=== PATIENT | male | born 1955 | race Caucasian/White ===

== ENCOUNTER 2017-08-23 16:39 | Inpatient (IN) ==
[2017-08-23] MEDS ORDERED: Ringers Solution, Lactated 500 ML IVC ONE (18:51)
[2017-08-23] MEDS ORDERED: *HR* OxyCODONE/APAP 5/325 TABLET PO PRN (18:52)
[2017-08-23] MEDS ORDERED: *HR* OxyCODONE Immed Rel 5 MG TABLET PO PRN (18:53)
[2017-08-23] MEDS ORDERED: Ondansetron 4 MG/2 ML VIAL IVP PRN (18:54)
[2017-08-23] MEDS ORDERED: Piperacillin/Tazobactam 3.375 GM in 0.9 % Sodium Chloride Mini Bag 100 ML IVPB SCH (19:29)
[2017-08-23] MEDS ORDERED: Ringers Solution, Lactated 1,000 ML ONE (19:42)
[2017-08-23] MEDS: Ringers Solution, Lactated 1,000 ML IVC SCH (19:52)
[2017-08-23] MEDS: Acetaminophen 325 MG TABLET PO PRN (19:53)
[2017-08-24] MEDS: Piperacillin/Tazobactam 3.375 GM in 0.9 % Sodium Chloride Mini Bag 100 ML IVPB SCH ×2 (05:11→12:23)
[2017-08-24] MEDS: Ringers Solution, Lactated 1,000 ML IVC SCH ×2 (05:12→23:17)
--- NOTE | 2017-08-24 07:43 | General Surg History&Physical ---
Date of Encounter: 08/24/17 Time of Encounter: 07:20 History of Present Illness Chief complaint: Right upper quadrant abdominal pain, acute cholecystitis, cholelithiasis HPI: Mr. Armendariz is a 61 year old male transferred from [facility], after presenting there with 3 day history of progressive right upper quadrant abdominal pain and nausea. Patient describes similar complaints in the past but they were much less severe and ultimately resolved spontaneously. Evaluation included laboratories which showed a leukocytosis of 14.2 with 11.1% neutrophils. Hemoglobin was 16.3, hematocrit 46.6. Electrolytes, BUN, creatinine were within normal limits. LFTs were also unremarkable. CT abdomen/ pelvis was notable for distended, thick walled gallbladder with pericholecystic fluid and inflammatory changes. A stone in the cystic duct measuring 15 mm was also evident. The patient was transferred to [facility] for further evaluation and treatment. Past medical history: Patient denies any significant medical history such as cardiac, hypertension, pulmonary, diabetes, or renal disease Allergies: No known drug allergies Medications: No home medications Social history: Patient denies ever smoking; he does not consume alcohol or use illicit drugs Family history: Noncontributory Physical examination: the patient is currently in no acute distress; 1.88 m tall , 112.17 kg, BMI 31.8 he has been afebrile since his transfer to [facility]; pulse 76, respirations 14, blood pressure 142/75. Skin: Warm, no obvious jaundice Lungs: Clear bilaterally, no obvious pain on deep inspiration Cardiac: Regular rate, no appreciable murmurs Abdomen: Soft, minimal tenderness in the right upper quadrant but no discernible organomegaly, intra-abdominal masses, or rebound Bowel sounds were present. Extremities without clubbing, cyanosis, or edema Impression: 61-year-old male transferred to [facility] after presenting to [facility] ED with several day history of progressive right upper quadrant abdominal pain and nausea. The acute symptoms have been controlled, however, the symptoms are likely to recur. Cholecystectomy has been recommended and discussed in detail. The patient is a reasonable candidate for laparoscopic cholecystectomy but understands an open cholecystectomy may become necessary. Risks include hemorrhage, infection, intra-abdominal abscess, bile leak, injury to adjacent ducts, vessels, organs, or bowel. Postcholecystectomy diarrhea is also possible. Other risks such as pneumonia, respiratory failure, and cardiac dysrhythmias were also mentioned. The patient expressed understanding and is willing to proceed with the recommended surgery. This will be completed later today. Past Med Surg Social Fam HX - Past Medical History Medical history: no medical history Psychiatric history: no psych history - Social History Smoking Status: Never smoker Smokeless Tobacco Status: No Alcohol use: none Drug use: none Medications and Allergies No Known Home Drugs 08/23/17 [History] 3 Allergy/AdvReac Type Severity Reaction Status Date / Time No Known Allergies Allergy Verified 08/23/17 12:02 Review of Systems All systems PM: The remainder of the systems were reviewed and are negative General Surgery Exam Initial Vital Signs Temp Pulse Resp BP Pulse Ox 98.3 F 72 14 127/78 97 08/23/17 18:40 08/23/17 18:40 08/23/17 18:40 08/23/17 18:40 08/23/17 18:40 Results - Labs All other labs normal.
[2017-08-24] MEDS: Acetaminophen 325 MG TABLET PO PRN ×2 (08:56→23:18)
--- NOTE | 2017-08-24 13:47 | Anesthesia Evaluation PreOp ---
Date of Encounter: 08/24/17 Time of Encounter: 14:14 - Past History Planned Operation: Lap cholecystectomy, poss cholangiogram Cardiac History: Denies any Significant Hx Pulmonary History: Denies Any Significant HX SEARCH ENGINE OPTIMIZER History: Denies Any Significant HX Other Medical History: Denies Any Significant HX Anesthesia History: No Prior Anesthetic Complications Alcohol Use: none Drug use: none Medications and Allergies No Known Home Drugs 08/23/17 [History] 3 Allergy/AdvReac Type Severity Reaction Status Date / Time No Known Allergies Allergy Verified 08/24/17 08:57 - Meds/Allergy Pre-op Review Medications Reviewed: Yes Allergies Reviewed: Yes Beta Blockers on Current Med List: No Anesthesia Results - Labs Laboratory Tests 08/23/17 08/23/17 08/24/17 12:08 12:08 12:17 WBC 14.2 H Hgb 16.3 Hct 46.6 Plt Count 286 Sodium 135 L Potassium 3.9 Chloride 100 Carbon Dioxide 24 BUN 12 Creatinine 0.97 Est GFR ( Amer) > 60 Est GFR (Non-Af Amer) > 60 BUN/Creatinine Ratio 12 Glucose 107 H POC Glucose 95 H Calculated Osmolality 280 Calcium 9.8 - Imaging EKG: report reviewed, image reviewed (SR) Anesthesia Exam Last Vital Signs Temp 98.1 F 08/24/17 12:14 Pulse 67 08/24/17 12:14 Resp 14 08/24/17 12:14 BP 133/78 08/24/17 12:14 Pulse Ox 98 08/24/17 12:14 Weight: 112 kg - HEENT Pupil (Motor): Pupils equal, EOMI Mallampati: III Teeth: Normal Oral Opening: Greater than 3 - SEARCH ENGINE OPTIMIZER LOC: Oriented SEARCH ENGINE OPTIMIZER Motor: Normal RUE, Normal LUE, Normal RLE, Normal LLE, Normal Face - Cardiac Rhythm: Regular Murmur: None - Pulmonary Breath Sounds: bilateral Clear Respiratory Effort: Symmetrical Anesthesia Assess/Plan ASA Score: 1 Modified Jeremiah Scale for Level of Consciousness: Cooperative, oriented, and tranquil Anesthetic Plan: General Monitoring Plan: Standard Monitors Recovery Plan: PACU
[2017-08-24] MEDS ORDERED: Bupivacaine/EPI 1:200k 0.5%PF 30 ML VIAL ONE ×2 (14:45→16:30)
[2017-08-24] MEDS ORDERED: *HR* Propofol 200 MG/20 ML VIAL IVP ONE (14:46)
[2017-08-24] MEDS ORDERED: *HR* Midazolam HCl 2 MG/2 ML VIAL ONE (14:46)
[2017-08-24] MEDS ORDERED: *HR* Rocuronium Bromide 50 MG/5 ML VIAL ONE (14:48)
[2017-08-24] MEDS ORDERED: *HR* FentaNYL (PF) 100 MCG/2 ML VIAL ONE ×2 (14:49→15:37)
[2017-08-24] MEDS ORDERED: *HR* Succinylcholine 200 MG/10 ML VIAL IVP ONE (14:53)
[2017-08-24] MEDS ORDERED: Lidocaine -MPF 2% 2 ML VIAL ONE (14:53)
[2017-08-24] MEDS ORDERED: Isovue-300 50 ML VIAL IVP ONE (15:09)
[2017-08-24] MEDS ORDERED: Ondansetron 4 MG/2 ML VIAL ONE (15:25)
[2017-08-24] MEDS ORDERED: Dexamethasone 4 MG/ML VIAL IVP ONE (15:47)
[2017-08-24] MEDS ORDERED: *HR* OxyCODONE Immed Rel 5 MG TABLET PO PRN (15:47)
[2017-08-24] MEDS ORDERED: MORPHINE SUL Oral CONC 10 MG/0.5 ML ORAL.SYG SL PRN (15:47)
[2017-08-24] MEDS ORDERED: *HR* Promethazine 25 MG/ML VIAL IVP PRN (15:47)
[2017-08-24] MEDS ORDERED: Ketorolac 30 MG/ML VIAL ONE (15:50)
[2017-08-24] MEDS ORDERED: *HR* Morphine 10 MG/ML VIAL ONE (15:55)
[2017-08-24] MEDS ORDERED: Dexamethasone 4 MG/ML VIAL ONE (16:00)
[2017-08-24] MEDS ORDERED: Neostigmine Methylsulfate 3 MG/3 ML SYRINGE ONE (16:27)
[2017-08-24] MEDS ORDERED: Ringers Solution, Lactated 500 ML IVC ONE (17:15)
--- NOTE | 2017-08-24 17:26 | Operative Note ---
Date of procedure: 08/24/17 Pre-op diagnosis: acute cholecystitis, cholelithiasis Post-op diagnosis: other (Acute acalculous cholecystitis) Procedure: Laparoscopy, open cholecystectomy Complications: None apparent Anesthesia: GETA Local Anesthetics: 0.5% Sensorcaine HCL with Epinephrine 1:200,000 SubQ (cc) ( 40 mL) Surgeon: Agustín Richards Was there an medical technician assistant present: No Estimated blood loss (cc): 200 IV fluids (cc): 1,250 Specimen: gallbladder Condition: stable Disposition: PACU Procedure in Detail: The patient was brought to the operating room where he was placed supine on the operating room table. The patient was appropriately identified as to person and procedure. The accuracy of this information was confirmed by the patient and the procedure team. The patient was intubated and anesthetized under the supervision of Dr. Nichole. The abdomen was prepped and draped in the usual sterile fashion. Several milliliters of 0.5% bupivacaine with 1-200,000 epinephrine was infiltrated into the infra umbilical skin. A small transverse incision was made. Dissection was carried to the fascia. The fascia was grasped, elevated and incised after administering additional bupivacaine with epinephrine into the fascia. An 11 mm Xcel port was established. The rigid laparoscope was placed within the obturator to visualize passage through the layers of the anterior abdominal wall. When the abdominal cavity was accessed, the obturator was replaced by the rigid laparoscope, the abdomen was insufflated with gaseous carbon dioxide. There was no obvious visible injury from establishing the port. Under direct visualization 3 additional ports were placed along the right costal margin. Was infiltrated with the bupivacaine with epinephrine solution. Laparoscopic dissection was initiated however the colon was densely adherent to an acutely inflamed, dilated gallbladder. Extensive adhesions were encountered, primarily adherent to the gallbladder. I abandon the laparoscopic approach were became apparent that visualization was impaired and would not improve with additional dissection. The pneumoperitoneum was evacuated, the laparoscopic instrumentation removed. When the operative team was ready, a subcostal incision was made after infiltrating the skin with bupivacaine with epinephrine. The dissection extended to the anterior rectus sheath which was incised, the right rectus abdominis muscle divided with electrocautery. The posterior rectus sheath was elevated and incised. The abdomen was entered atraumatically. Exposure was facilitated with self-retaining Bookwalter retractor. The gallbladder was tensely distended and quite firm. Aspiration was attempted, yielding approximately 10 mL of a thick dark bile. This was ineffective at decompressing the gallbladder. The gallbladder was exposed using a combined sharp and blunt dissection to mobilize the colon and the other adhesions to the gallbladder. The bladder was exposed, a retrograde dissection was commenced. Using electrocautery, the distal tip of the gallbladder was dissected from the liver bed and then using blunt dissection and was able to separate the gallbladder from the liver bed. I was able to extend the dissection until the cystic duct and cystic arteries were identified and skeletonized. Both structures were clipped and divided. The acutely inflamed gallbladder was removed. On opening the gallbladder on the back table no stones were encountered. The findings were consistent with acute acalculous cholecystitis. The liver bed was inspected for adequate hemostasis. A 7 mm Agustín-Lozano drain was introduced via the 5 mm port in the right anterior axillary line. The vein was placed in the gallbladder fossa and secured to the anterior abdominal wall with 3-0 silk. The infraumbilical port site was closed with an interrupted [id number] 0 Vicryl followed by closing the subcostal incision with running interlocking 0 Vicryl to close the peritoneum. Several milliliters of 0.5% bupivacaine with 1-200,000 epinephrine was infiltrated into this layer. The rectus sheath was closed with interrupted [id number] 0 Vicryl and then infiltrated with the bupivacaine with epinephrine solution. Subcutaneous tissue was approximated with running 3-0 Vicryl. The skin edges were approximated with edgar. Dry sterile dressings were applied. The patient was taken to recovery in stable condition. Needle, sponge, and instrument counts were correct at the close of the case. Total volume of 0.5% bupivacaine with epinephrine used, 40 mL.
--- NOTE | 2017-08-24 17:37 | Anesthesia Evaluation Post Op ---
Date of Encounter: 08/24/17 Time of Encounter: 17:35 Notes: 08/24/17 17:36 Patient's vital signs have been reviewed. Patient is stable postoperatively and has adequately recovered from anesthesia, unless otherwise noted. Patient is determined to have stable airway patency and respiratory function including respiratory rate and oxygen saturation. Patient has a stable heart rate, blood pressure and adequate hydration. Patients mental status is acceptable. Patients temperature is appropriate. Pain and nausea are adequately controlled. - Discharge PostOp Status: Transfer Patient to floor
[2017-08-24] MEDS ORDERED: Piperacillin/Tazobactam 3.375 GM in 0.9 % Sodium Chloride Mini Bag 100 ML IVPB SCH (18:55)
[2017-08-24] MEDS: *HR* OxyCODONE/APAP 5/325 TABLET PO PRN (19:09)
[2017-08-25] MEDS: *HR* OxyCODONE/APAP 5/325 TABLET PO PRN ×3 (05:13→23:50)
[2017-08-25] MEDS: Ringers Solution, Lactated 1,000 ML IVC SCH ×4 (07:00→11:22)
[2017-08-25 07:31] LABS: Basophils % 0.1 %; Hematocrit 40.9 % (37.5-50.1); Hemoglobin 13.5 g/dL (12.9-16.9); Immature Granulocytes % 0.4 % (0-4); Lymphocytes # 0.6 K/mcL (0.6-4.6); Lymphocytes % 4.3 %; Mean Corpuscular Hemoglobin 29.6 pg (28.0-33.3); Mean Corpuscular Volume 89.7 fL (83.0-100.0); Mean Platelet Volume 10.4 fL (9.4-12.4); Monocytes # 1.4 K/mcL (0.0-1.3); Monocytes % 9.8 %; Neutrophils # 11.8 K/mcL (1.6-8.9); Platelet Count 276 K/mcL (140-400); Red Blood Count 4.56 M/mcL (4.19-5.50); Red Cell Distribution Width 12.8 % (11.5-14.5); Segmented Neutrophils % 85.4 %
[2017-08-25 09:31] LABS: Alanine Aminotransferase 75 Units/L (7-52); Albumin 3.3 g/dL (3.5-5.7); Albumin/Globulin Ratio 1.2 (1.1-2.2); Alkaline Phosphatase 73 Units/L (34-104); Aspartate Amino Transferase 45 Units/L (13-39); BUN/Creatinine Ratio 21 (6-26); Bilirubin,Total 0.8 mg/dL (0.3-1.0); Blood Urea Nitrogen 15 mg/dL (6-20); Calcium 8.9 mg/dL (8.6-10.3); Carbon Dioxide 23 mEq/L (23-29); Chloride 102 mEq/L (98-107); Globulin 2.8 g/dL (2.4-3.5); Glucose 142 mg/dL (70-105); Osmolality,Calculated 277 (280-300); Potassium 4.1 mEq/L (3.5-5.1); Sodium 132 mEq/L (136-145); Total Protein 6.1 g/dL (6.4-8.9); eGFR For African Americans > 60 (> 60); eGFR For Non-African Americans > 60 (> 60)
--- NOTE | 2017-08-25 12:03 | General Surgery Progress Note ---
Date of Encounter: 08/25/17 Time of Encounter: 11:55 Subjective Narrative: General Surgery - POD #1 patient feeling better - indicates that he no longer feels "sick" but admits to incision pain The patient is afebrile; currently 97.7; pulse 65, RR 14; BP 120/70. SPO2 on 1 L/m nasal cannula 92-93% Lungs: Clear to auscultation so inspiratory effort limited by the patient's incisional pain; weak ineffective cough Abdomen: Soft, active bowel sounds. Minimal incisional pain. Dried blood on dressing - incision is otherwise clean and dry no fascial defects Dressing removed. JOSSELYN - output recorded at 290 mL; reservoir was empty during my encounter at bedside Urine output: 900 mL recorded for calendar day 08/24/17; no urine output recorded this date (I wonder if the JOSSELYN drainage was urine output) Labs: White count 13.8 with 11.8% neutrophils and response to surgery; hemoglobin stable at 13.5, hematocrit 40.9, platelet count 276,000. Sodium low at 132 but without neural sequela; potassium 4.1, BUN, creatinine within normal limits. Bilirubin 0.8, AST 45/ALT 75, alkaline phosphatase 73. The elevated AST/ALT also likely reaction to surgery. Operative pathology pending Impression: Postoperative day 1; status post laparoscopy converted to open cholecystectomy for acute acalculous cholecystitis. Acceptable postoperative status but not ready for discharge home. Patient's activity out of bed is severely limited by his pain. Nursing reports that he is reluctant to take pain meds Pain medication to facilitate activity out of bed as well as inspiratory effort including cough was discussed in detail with the patient. Plan: Continue to monitor JOSSELYN output Patient is tolerating regular diet with satisfactory oral intake, discontinue IV fluids Recheck labs in a.m. Objective Vital Signs - Last 8 Hours Temp Pulse Resp BP Pulse Ox 08/25/17 11:02 97.7 F 65 14 120/70 92 08/25/17 10:56 97.8 F 68 16 119/68 93 08/25/17 06:55 98.0 F 63 16 117/71 95 08/25/17 04:50 98.0 F 64 16 157/82 95 Intake and Output 08/24/17 08/25/17 08/25/17 23:59 07:59 15:59 Intake Total 100 / 100 0 / 0 1000 / 1000 Output Total 230 / 230 240 / 240 50 / 50 Balance -130 / -130 -240 / -240 950 / 950 Intake: IV Fluids 1000 / 1000 Lactated Ringers 1,000 ML @ 100 1000 / 1000 mls/hr IVC .Q10H CHAU Rx#: [id number] Oral 100 / 100 0 / 0 Output: Urine 0 / 0 0 / 0 0 / 0 Estimated Blood Loss 200 / 200 Wound Drainage 30 / 30 240 / 240 50 / 50 Right Lower Abdomen 240 / 240 50 / 50 Other: # Voids 1 # Bowel Movements 0 0 - Labs 08/25/17 06:12 08/25/17 06:12 Diabetes panel 08/25/17 Range/Units 06:12 Sodium 132 L (136-145) mEq/L Potassium 4.1 (3.5-5.1) mEq/L Chloride 102 (98-107) mEq/L Carbon Dioxide 23 (23-29) mEq/L BUN 15 (6-20) mg/dL Creatinine 0.73 (0.70-1.30) mg/dL Glucose 142 H (70-105) mg/dL Calcium 8.9 (8.6-10.3) mg/dL AST 45 H (13-39) Units/L ALT 75 H (7-52) Units/L Alkaline Phosphatase 73 (34-104) Units/L Albumin 3.3 L (3.5-5.7) g/dL Calcium panel 08/25/17 Range/Units 06:12 Calcium 8.9 (8.6-10.3) mg/dL Albumin 3.3 L (3.5-5.7) g/dL Pituitary panel 08/25/17 Range/Units 06:12 Sodium 132 L (136-145) mEq/L Potassium 4.1 (3.5-5.1) mEq/L Chloride 102 (98-107) mEq/L Carbon Dioxide 23 (23-29) mEq/L BUN 15 (6-20) mg/dL Creatinine 0.73 (0.70-1.30) mg/dL Glucose 142 H (70-105) mg/dL Calcium 8.9 (8.6-10.3) mg/dL Adrenal panel 08/25/17 Range/Units 06:12 Sodium 132 L (136-145) mEq/L Potassium 4.1 (3.5-5.1) mEq/L Chloride 102 (98-107) mEq/L Carbon Dioxide 23 (23-29) mEq/L BUN 15 (6-20) mg/dL Creatinine 0.73 (0.70-1.30) mg/dL Glucose 142 H (70-105) mg/dL Calcium 8.9 (8.6-10.3) mg/dL Total Bilirubin 0.8 (0.3-1.0) mg/dL AST 45 H (13-39) Units/L ALT 75 H (7-52) Units/L Alkaline Phosphatase 73 (34-104) Units/L Albumin 3.3 L (3.5-5.7) g/dL - VTE Documentation of Mechanical Device: Intermittent pneumatic compression device Consult Discharge Plan - Plan Referrals: Trang Siegel MD [Family Provider] -
[2017-08-26 06:25] LABS: Basophils % 0.2 %; Eosinophils # 0.1 K/mcL (0.0-0.6); Eosinophils % 0.4 %; Hematocrit 38.1 % (37.5-50.1); Hemoglobin 12.5 g/dL (12.9-16.9); Immature Granulocytes % 0.4 % (0-4); Lymphocytes % 17.4 %; Mean Corpuscular HGB Conc 32.8 g/dL (31.6-35.5); Mean Corpuscular Hemoglobin 29.6 pg (28.0-33.3); Mean Corpuscular Volume 90.1 fL (83.0-100.0); Mean Platelet Volume 10.1 fL (9.4-12.4); Monocytes # 1.4 K/mcL (0.0-1.3); Monocytes % 12.1 %; Neutrophils # 7.9 K/mcL (1.6-8.9); Platelet Count 284 K/mcL (140-400); Red Blood Count 4.23 M/mcL (4.19-5.50); Red Cell Distribution Width 12.9 % (11.5-14.5); Segmented Neutrophils % 69.5 %
[2017-08-26] MEDS: *HR* OxyCODONE/APAP 5/325 TABLET PO PRN ×3 (06:47→21:46)
--- NOTE | 2017-08-26 14:52 | General Surgery Progress Note ---
Date of Encounter: 08/26/17 Time of Encounter: 14:05 Subjective Patient reports: no new complaints, still having pain Narrative: General Surgery - POD #2 Patient indicates that he is feeling better but still has significant incisional tenderness. Incisional pain is impacting his activities out of bed and his pulmonary toilet Patient continues to be afebrile, most recently 98.1, pulse 68, respirations 16, blood pressure 148/74. Lungs: Clear though inspiratory effort still limited; no obvious pain and deep inspiration Cardiac: Regular rate with no appreciable murmur Doing: Soft with subcostal incision tenderness as expected. The incision is clean and dry. Bowel sounds are active JOSSELYN: No recorded drainage today; minimal sanguinous fluid in the reservoir Laboratories: Leukocytosis is improved to 11.4; hemoglobin 12.5, hematocrit 38.1. Operative pathology still pending Impression: 61-year-old male, postoperative day #2 s/p laparoscopy open cholecystectomy. Post op incisional pain slowly improving. Activity OOB and incentive spirometry still limited by the incisional pain Patient tolerating diet; No N/V or post cholecystectomy diarrhea. Objective Vital Signs - Last 8 Hours Temp Pulse Resp BP Pulse Ox 08/26/17 10:25 98.1 F 68 16 148/74 93 Intake and Output 08/25/17 08/26/17 08/26/17 23:59 07:59 15:59 Intake Total 240 / 240 0 / 0 0 / 0 Output Total 130 / 130 250 / 250 0 / 0 Balance 110 / 110 -250 / -250 0 / 0 Intake: Oral 240 / 240 0 / 0 0 / 0 Output: Urine 100 / 100 250 / 250 Wound Drainage 30 / 30 0 / 0 0 / 0 Right Lower Abdomen 30 / 30 0 / 0 0 / 0 Other: Meal Dinner Percent of Meal Consumed 50% 0% # Voids 1 Weight 112.17 kg Patient Weight 08/26/17 23:59 Weight 112.17 kg - Labs 08/26/17 05:53 08/25/17 06:12 - VTE Documentation of Mechanical Device: Intermittent pneumatic compression device Consult Discharge Plan - Plan Referrals: Trang Siegel MD [Family Provider] -
[2017-08-27] MEDS: Ondansetron 4 MG/2 ML VIAL IVP PRN ×2 (08:00→15:33)
[2017-08-27 08:16] LABS: BUN/Creatinine Ratio 21 (6-26); Blood Urea Nitrogen 14 mg/dL (6-20); Calcium 8.7 mg/dL (8.6-10.3); Carbon Dioxide 27 mEq/L (23-29); Chloride 103 mEq/L (98-107); Glucose 95 mg/dL (70-105); Osmolality,Calculated 284 (280-300); Potassium 3.6 mEq/L (3.5-5.1); Sodium 137 mEq/L (136-145); eGFR For African Americans > 60 (> 60); eGFR For Non-African Americans > 60 (> 60)
[2017-08-27 08:17] LABS: Albumin 3.3 g/dL (3.5-5.7); Albumin/Globulin Ratio 1.1 (1.1-2.2); Bilirubin,Direct 0.2 mg/dL (0.0-0.2); Bilirubin,Indirect 0.4 mg/dL (0.0-1.2); Bilirubin,Total 0.6 mg/dL (0.3-1.0); Globulin 2.9 g/dL (2.4-3.5); Total Protein 6.2 g/dL (6.4-8.9)
[2017-08-27] MEDS: Acetaminophen 325 MG TABLET PO PRN ×2 (08:28→17:38)
[2017-08-27 08:42] LABS: Basophils % 0.3 %; Eosinophils # 0.3 K/mcL (0.0-0.6); Eosinophils % 3.2 %; Hematocrit 38.2 % (37.5-50.1); Hemoglobin 12.7 g/dL (12.9-16.9); Immature Granulocytes % 0.2 % (0-4); Lymphocytes # 1.8 K/mcL (0.6-4.6); Lymphocytes % 19.9 %; Mean Corpuscular HGB Conc 33.2 g/dL (31.6-35.5); Mean Corpuscular Hemoglobin 30.1 pg (28.0-33.3); Mean Corpuscular Volume 90.5 fL (83.0-100.0); Monocytes # 0.9 K/mcL (0.0-1.3); Monocytes % 9.9 %; Neutrophils # 5.9 K/mcL (1.6-8.9); Platelet Count 330 K/mcL (140-400); Red Blood Count 4.22 M/mcL (4.19-5.50); Red Cell Distribution Width 12.9 % (11.5-14.5); Segmented Neutrophils % 66.5 %
[2017-08-27] MEDS: *HR* OxyCODONE/APAP 5/325 TABLET PO PRN (10:19)
--- NOTE | 2017-08-27 11:27 | General Surgery Progress Note ---
Date of Encounter: 08/27/17 Time of Encounter: 11:21 Subjective Patient reports: other (abdominal pain) Narrative: General Surgery - POD #3 Patient complaining of "feeling all full" he describes right lower quadrant/ diffuse abdominal pain. The patient is complaining of nausea but no emesis Despite complaints patient is afebrile, currently 98.6, pulse 68-72, respirations 16, the pressure is elevated at 170/93. SPO2 on room air 90 Lungs: Clear, no obvious abdominal pain on deep inspiration Cardiac: Regular rate, no appreciable murmurs Abdomen: Soft with active bowel sounds; tenderness on the right side of the abdomen both right lower and right upper quadrants. No obvious rebound or peritoneal signs. JOSSELYN no significant output in the last 24 hours Pathology: Acute cholecystitis; no stones identified Labs: White count normal at 8.9, hemoglobin stable at 12.7, hematocrit 38.2. Differential within normal limits; electrolytes, BUN, Cr within normal limits. AST is normalized to 25, ALT has normalized to 45, alkaline phosphatase has remained normal 65; phosphorus and magnesium normal Impression: 61-year-old male, postoperative day #3, laparoscopy converted to open cholecystectomy for acute acalculous cholecystitis. Patient now complaining of right lower quadrant/diffuse abdominal pain nausea but no emesis No obvious clinical findings to identify the source of the patient's complaints Plan: CT abdomen/pelvis JOHN Objective Vital Signs - Last 8 Hours Temp Pulse Resp BP Pulse Ox 08/27/17 07:43 98.6 F 72 16 170/93 94 Intake and Output 08/26/17 08/27/17 08/27/17 23:59 07:59 15:59 Intake Total 240 / 240 Balance 240 / 240 Intake: Oral 240 / 240 Other: Meal Dinner Percent of Meal Consumed 85% # Voids 2 1 - Labs 08/27/17 07:03 08/27/17 07:03 Diabetes panel 08/27/17 08/27/17 Range/Units 07:03 07:03 Sodium 137 (136-145) mEq/L Potassium 3.6 (3.5-5.1) mEq/L Chloride 103 (98-107) mEq/L Carbon Dioxide 27 (23-29) mEq/L BUN 14 (6-20) mg/dL Creatinine 0.68 L (0.70-1.30) mg/dL Glucose 95 (70-105) mg/dL Calcium 8.7 (8.6-10.3) mg/dL AST 25 (13-39) Units/L ALT 44 (7-52) Units/L Alkaline Phosphatase 65 (34-104) Units/L Albumin 3.3 L (3.5-5.7) g/dL Calcium panel 08/27/17 08/27/17 Range/Units 07:03 07:03 Calcium 8.7 (8.6-10.3) mg/dL Phosphorus 3.0 (2.7-4.5) mg/dL Albumin 3.3 L (3.5-5.7) g/dL Pituitary panel 08/27/17 Range/Units 07:03 Sodium 137 (136-145) mEq/L Potassium 3.6 (3.5-5.1) mEq/L Chloride 103 (98-107) mEq/L Carbon Dioxide 27 (23-29) mEq/L BUN 14 (6-20) mg/dL Creatinine 0.68 L (0.70-1.30) mg/dL Glucose 95 (70-105) mg/dL Calcium 8.7 (8.6-10.3) mg/dL Adrenal panel 08/27/17 08/27/17 Range/Units 07:03 07:03 Sodium 137 (136-145) mEq/L Potassium 3.6 (3.5-5.1) mEq/L Chloride 103 (98-107) mEq/L Carbon Dioxide 27 (23-29) mEq/L BUN 14 (6-20) mg/dL Creatinine 0.68 L (0.70-1.30) mg/dL Glucose 95 (70-105) mg/dL Calcium 8.7 (8.6-10.3) mg/dL Total Bilirubin 0.6 (0.3-1.0) mg/dL AST 25 (13-39) Units/L ALT 44 (7-52) Units/L Alkaline Phosphatase 65 (34-104) Units/L Albumin 3.3 L (3.5-5.7) g/dL - VTE Documentation of Mechanical Device: Intermittent pneumatic compression device Consult Discharge Plan - Plan Referrals: Trang Siegel MD [Family Provider] -
[2017-08-27] MEDS: *HR* HYDROcodone/Acet 5/325 mg TABLET PO PRN ×2 (12:21→21:04)
[2017-08-27] MEDS: *HR* Heparin 5,000 UNIT/ML VIAL SQ SCH ×2 (12:22→17:38)
--- NOTE | 2017-08-27 12:51 | Event Note ---
Date of Encounter: 08/27/17 Time of Encounter: 12:47 CT abdomen/pelvis reviewed with [facility]. The CT demonstrates the expected post op findings: minor pleural effusions right greater than left; small amount persistent peritoneal air consistent with recent celiotomy; thickening upper right rectus abdominis with fluid and air miminal free fluid in the pelvis. No abscess, hematoma or biloma. The bowel pattern was normal. The JOSSELYN is just within the peritoneum - no longer located in the gallbladder fossa.
[2017-08-27] MEDS ORDERED: *HR* OxyCODONE Immed Rel 5 MG TABLET PO ONE (15:27)
[2017-08-27] MEDS: *HR* OxyCODONE Immed Rel 5 MG TABLET PO PRN (23:56)
[2017-08-28] MEDS: Ondansetron 4 MG/2 ML VIAL IVP PRN ×3 (00:59→09:41)
[2017-08-28] MEDS: *HR* OxyCODONE Immed Rel 5 MG TABLET PO PRN ×4 (05:41→19:33)
[2017-08-28] MEDS: *HR* Heparin 5,000 UNIT/ML VIAL SQ SCH ×2 (05:42→17:59)
[2017-08-28 08:17] LABS: Basophils % 0.1 %; Hematocrit 42.4 % (37.5-50.1); Immature Granulocytes % 0.5 % (0-4); Lymphocytes # 0.9 K/mcL (0.6-4.6); Lymphocytes % 6.2 %; Mean Corpuscular HGB Conc 33.7 g/dL (31.6-35.5); Mean Corpuscular Hemoglobin 29.8 pg (28.0-33.3); Mean Corpuscular Volume 88.3 fL (83.0-100.0); Mean Platelet Volume 9.6 fL (9.4-12.4); Monocytes # 1.1 K/mcL (0.0-1.3); Monocytes % 7.5 %; Platelet Count 435 K/mcL (140-400); Segmented Neutrophils % 85.7 %
[2017-08-28] MEDS: Acetaminophen 325 MG TABLET PO PRN (08:44)
[2017-08-28 08:48] LABS: Hemoglobin 14.3 g/dL (12.9-16.9); Neutrophils # 12.3 K/mcL (1.6-8.9)
[2017-08-28] MEDS ORDERED: 0.9 % Sodium Chloride 500 ML IVC ONE (10:20)
[2017-08-28] MEDS ORDERED: Promethazine 12.5 MG in 0.9 % Sodium Chloride 50 ML IVPB PRN (10:20)
[2017-08-28] MEDS ORDERED: Potassium Chloride 20 MEQ, Lidocaine 1% 2 ML in D5% in Water 250 ML IVPB ONE (10:24)
--- NOTE | 2017-08-28 10:34 | General Surgery Progress Note ---
Date of Encounter: 08/28/17 Time of Encounter: 10:20 Subjective Narrative: General Surgery - POD #4 Patient feeling poorly; continues to complain of pain; nausea and vomiting through the night. Remains afebrile; most recently 97.8, pulse 68-73, respirations 18, blood pressure 176/99 - 180/95 Suspected blood pressure elevated due to the patient's pain, however, patient has not been seen by a physician in many years - ` It is possible that the patient is hypertensive that has not yet been diagnosed Lungs: Clear Abdomen: Soft with minimal tenderness around the subcostal incision. Active bowel sounds. Very little oral intake; no recorded urine output for calendar day 08/27 or today Laboratories: White count elevated to 14.3; likely secondary to the emesis; neutrophils also increased to 12.3 H&H increased from 12.7/38.2 to 14.3/42.4 consistent with deyhydration Impression: Nausea and vomiting; abdominal pain not relieved by oral medications Likely dehydration secondary to the nausea and vomiting Hypertension CT completed yesterday - nondiagnostic with the expected postoperative changes Plan: Reduce diet to clear liquids Initiate IV fluids with a fluid bolus Begin lisinopril 5 mg by mouth daily and monitor blood pressure Add Phenergan to control nausea/emesis Objective Vital Signs - Last 8 Hours Temp Pulse Resp BP Pulse Ox 08/28/17 07:44 97.8 F 73 18 180/95 93 08/28/17 03:03 97.3 F L 68 17 176/99 95 Intake and Output 08/27/17 08/28/17 08/28/17 23:59 07:59 15:59 Intake Total 120 / 120 120 / 120 Output Total 0 / 0 650 / 650 300 / 300 Balance 120 / 120 -530 / -530 -300 / -300 Intake: Oral 120 / 120 120 / 120 Output: Urine 0 / 0 0 / 0 Emesis 650 / 650 300 / 300 Wound Drainage 0 / 0 0 / 0 Right Lower Abdomen 0 / 0 0 / 0 Other: # Voids 1 - Labs 08/28/17 07:05 08/27/17 07:03 - VTE Documentation of Mechanical Device: Intermittent pneumatic compression device Consult Discharge Plan - Plan Referrals: Trang Siegel MD [Family Provider] -
[2017-08-28] MEDS: D5% in 0.45% NACL 1,000 ML IVC SCH (11:12)
[2017-08-29] MEDS: *HR* OxyCODONE Immed Rel 5 MG TABLET PO PRN ×2 (02:56→15:04)
[2017-08-29] MEDS: D5% in 0.45% NACL 1,000 ML IVC SCH ×2 (02:57→18:49)
[2017-08-29] MEDS: *HR* Heparin 5,000 UNIT/ML VIAL SQ SCH ×2 (05:28→18:38)
[2017-08-29 06:30] LABS: Basophils % 0.3 %; Eosinophils # 0.3 K/mcL (0.0-0.6); Hematocrit 41.6 % (37.5-50.1); Immature Granulocytes % 0.7 % (0-4); Immature Platelets 1.9 % (1.1-6.1); Lymphocytes # 1.7 K/mcL (0.6-4.6); Lymphocytes % 11.3 %; Mean Corpuscular HGB Conc 33.7 g/dL (31.6-35.5); Mean Corpuscular Hemoglobin 30.1 pg (28.0-33.3); Mean Corpuscular Volume 89.5 fL (83.0-100.0); Mean Platelet Volume 9.4 fL (9.4-12.4); Monocytes # 1.3 K/mcL (0.0-1.3); Neutrophils # 11.3 K/mcL (1.6-8.9); Platelet Count 468 K/mcL (140-400); Red Blood Count 4.65 M/mcL (4.19-5.50); Red Cell Distribution Width 13.2 % (11.5-14.5); Segmented Neutrophils % 76.7 %
[2017-08-29 07:11] LABS: Alanine Aminotransferase 117 Units/L (7-52); Albumin 3.3 g/dL (3.5-5.7); Albumin/Globulin Ratio 1.2 (1.1-2.2); Alkaline Phosphatase 106 Units/L (34-104); Aspartate Amino Transferase 62 Units/L (13-39); BUN/Creatinine Ratio 28 (6-26); Bilirubin,Total 2.1 mg/dL (0.3-1.0); Blood Urea Nitrogen 16 mg/dL (6-20); Calcium 8.9 mg/dL (8.6-10.3); Carbon Dioxide 26 mEq/L (23-29); Chloride 102 mEq/L (98-107); Globulin 2.8 g/dL (2.4-3.5); Glucose 136 mg/dL (70-105); Osmolality,Calculated 283 (280-300); Potassium 3.8 mEq/L (3.5-5.1); Sodium 135 mEq/L (136-145); Total Protein 6.1 g/dL (6.4-8.9); eGFR For African Americans > 60 (> 60); eGFR For Non-African Americans > 60 (> 60)
--- NOTE | 2017-08-29 13:17 | General Surgery Progress Note ---
Date of Encounter: 08/29/17 Time of Encounter: 13:10 Subjective Patient reports: feels better, pain is less Narrative: General Surgery - POD #5 Patient feeling better; pain, nausea and vomiting controlled Maximum temperature 99.3; pulse 87, respirations 14, blood pressure 120/83. SPO2 on room air 93% Lungs: Clear; better inspiratory effort Abdomen: Right upper quadrant/subcostal tenderness persists; no obvious intra -abdominal masses. No rebound Active bowel sounds JOSSELYN with sudden increased output this morning approximately 840 mL bilious fluid Laboratories: Persistent leukocytosis of 14.7 but neutrophils have improved to 11.3 (previously 12.3); platelet count 468,000. Electrolytes are notable for sodium 135; potassium 3.8, BUN 16, creatinine 0.57 Bilirubin increased to 2.1, AST 62, ALT 117, alkaline phosphatase 106 - reflective of the intraperitoneal bile recently drained via JOSSELYN Impression: Postoperative day 5, status post laparoscopy converted to open cholecystectomy for acute acalculous cholecystitis Likely postoperative bile leak causing the patient's pain, leukocytosis and abnormal labs Patient is feeling better Plan: HB scan Objective Vital Signs - Last 8 Hours Temp Pulse Resp BP Pulse Ox 08/29/17 11:12 99.3 F 87 14 120/83 93 08/29/17 06:59 98.3 F 82 14 122/77 93 Intake and Output 08/28/17 08/29/17 08/29/17 23:59 07:59 15:59 Intake Total 50.5 / 50.5 1000 / 1000 0 / 0 Output Total 100 / 100 200 / 200 1090 / 1090 Balance -49.5 / -49.5 800 / 800 -1090 / -1090 Intake: IV Fluids 50.5 / 50.5 1000 / 1000 D5% And 0.45% Nacl 1000 Ml Bag 1000 / 1000 1,000 ML @ 75 mls/hr IVC . [id number] [facility] Rx#:[id number] Phenergan 12.5 MG In 0.9 % 50.5 / 50.5 Sodium Chloride 50 ML @ 204 mls /hr IVPB Q4H PRN Rx#:[id number] Oral 0 / 0 0 / 0 0 / 0 Output: Urine 100 / 100 200 / 200 250 / 250 Wound Drainage 840 / 840 Right Lower Abdomen 840 / 840 Other: Meal Breakfast Percent of Meal Consumed 0% # Voids 0 - Labs 08/29/17 06:05 08/29/17 06:05 Diabetes panel 08/29/17 Range/Units 06:05 Sodium 135 L (136-145) mEq/L Potassium 3.8 (3.5-5.1) mEq/L Chloride 102 (98-107) mEq/L Carbon Dioxide 26 (23-29) mEq/L BUN 16 (6-20) mg/dL Creatinine 0.57 L (0.70-1.30) mg/dL Glucose 136 H (70-105) mg/dL Calcium 8.9 (8.6-10.3) mg/dL AST 62 H (13-39) Units/L ALT 117 H (7-52) Units/L Alkaline Phosphatase 106 H (34-104) Units/L Albumin 3.3 L (3.5-5.7) g/dL Calcium panel 08/29/17 Range/Units 06:05 Calcium 8.9 (8.6-10.3) mg/dL Albumin 3.3 L (3.5-5.7) g/dL Pituitary panel 08/29/17 Range/Units 06:05 Sodium 135 L (136-145) mEq/L Potassium 3.8 (3.5-5.1) mEq/L Chloride 102 (98-107) mEq/L Carbon Dioxide 26 (23-29) mEq/L BUN 16 (6-20) mg/dL Creatinine 0.57 L (0.70-1.30) mg/dL Glucose 136 H (70-105) mg/dL Calcium 8.9 (8.6-10.3) mg/dL Adrenal panel 08/29/17 Range/Units 06:05 Sodium 135 L (136-145) mEq/L Potassium 3.8 (3.5-5.1) mEq/L Chloride 102 (98-107) mEq/L Carbon Dioxide 26 (23-29) mEq/L BUN 16 (6-20) mg/dL Creatinine 0.57 L (0.70-1.30) mg/dL Glucose 136 H (70-105) mg/dL Calcium 8.9 (8.6-10.3) mg/dL Total Bilirubin 2.1 H (0.3-1.0) mg/dL AST 62 H (13-39) Units/L ALT 117 H (7-52) Units/L Alkaline Phosphatase 106 H (34-104) Units/L Albumin 3.3 L (3.5-5.7) g/dL - VTE Documentation of Mechanical Device: Intermittent pneumatic compression device Consult Discharge Plan - Plan Referrals: Trang Siegel MD [Family Provider] -
[2017-08-30] MEDS: *HR* OxyCODONE Immed Rel 5 MG TABLET PO PRN ×2 (00:32→05:57)
--- NOTE | 2017-08-30 08:11 | Event Note ---
Date of Encounter: 08/30/17 Time of Encounter: 08:09 Hb confirms the presence of a bile leak. The intra operatively placed JOSSELYN drain has been dislodged from the GB fossa. Have consulted Interventional Radiology for placement of another drain to more effectively control the bile leak.
[2017-08-30] MEDS: D5% in 0.45% NACL 1,000 ML IVC SCH (08:45)
[2017-08-30] MEDS: Ondansetron 4 MG/2 ML VIAL IVP PRN (08:46)
[2017-08-30 09:19] LABS: INR 1.3; Prothrombin Time 14.3 Seconds (9.4-12.1)
[2017-08-30] MEDS ORDERED: *HR* Midazolam HCl 2 MG/2 ML VIAL IVP ONE (11:18)
[2017-08-30] MEDS ORDERED: *HR* FentaNYL (PF) 100 MCG/2 ML VIAL IVP ONE (11:18)
[2017-08-30] MEDS ORDERED: *HR* Midazolam HCl 2 MG/2 ML VIAL ONE (11:21)
[2017-08-30] MEDS ORDERED: *HR* FentaNYL (PF) 100 MCG/2 ML VIAL ONE (11:21)
--- NOTE | 2017-08-30 14:44 | General Surgery Progress Note ---
Date of Encounter: 08/30/17 Time of Encounter: 14:40 Subjective Patient reports: feels better Narrative: General Surgery POD #6 Patient status post percutaneous placement of drain in the right paracolic gutter by [place] [facility] This procedure initially yielded about 10 mL of bilious fluid but since has drained approx 440 mL. The patient is feeling much improved as a result Patient has remained afebrile, hemodynamically stable; 97.7, 92, 16, 95/60 Lungs: Clear Abdomen: Soft with less right upper quadrant tenderness. Subcostal incision clean and dry Active bowel sounds Impression: Postoperative day #6, status post laparoscopy converted to open cholecystectomy for acute acalculous cholecystitis Postoperative bile leak - effectively drained today Plan: Regular diet as tolerated Check labs in a.m. Monitor bilious drainage; may require ERCP / placement biliary stent Objective Vital Signs - Last 8 Hours Temp Pulse Resp BP Pulse Ox 08/30/17 14:38 97.7 F 92 16 95/60 95 08/30/17 11:55 97.0 F L 96 16 106/71 95 08/30/17 11:31 88 22 84/49 99 08/30/17 06:47 97.6 F 93 16 116/78 93 Intake and Output 08/29/17 08/30/17 08/30/17 23:59 07:59 15:59 Intake Total 1120 / 1120 0 / 0 1000 / 1000 Output Total 0 / 0 325 / 325 615 / 615 Balance 1120 / 1120 -325 / -325 385 / 385 Intake: IV Fluids 1000 / 1000 1000 / 1000 D5% And 0.45% Nacl 1000 Ml Bag 1000 / 1000 1000 / 1000 1,000 ML @ 75 mls/hr IVC . [id number] [facility] Rx#:[id number] Oral 120 / 120 0 / 0 0 / 0 Output: Urine 0 / 0 325 / 325 175 / 175 Wound Drainage 440 / 440 Right Lower Abdomen 440 / 440 Other: Meal Dinner Lunch Percent of Meal Consumed 10% 0% # Bowel Movements 0 0 Blood Glucose* 149 108 - Labs 08/29/17 06:05 08/29/17 06:05 - VTE Documentation of Mechanical Device: Intermittent pneumatic compression device Consult Discharge Plan - Plan Referrals: Trang Siegel MD [Family Provider] -
[2017-08-31] MEDS: D5% in 0.45% NACL 1,000 ML IVC SCH ×2 (01:39→12:36)
[2017-08-31 05:37] LABS: Basophils % 0.2 %; Eosinophils # 0.7 K/mcL (0.0-0.6); Hematocrit 40.5 % (37.5-50.1); Hemoglobin 13.6 g/dL (12.9-16.9); Lymphocytes # 1.4 K/mcL (0.6-4.6); Lymphocytes % 10.7 %; Mean Corpuscular HGB Conc 33.6 g/dL (31.6-35.5); Mean Corpuscular Hemoglobin 30.2 pg (28.0-33.3); Mean Corpuscular Volume 89.8 fL (83.0-100.0); Mean Platelet Volume 9.4 fL (9.4-12.4); Monocytes # 1.2 K/mcL (0.0-1.3); Monocytes % 8.6 %; Neutrophils # 10.1 K/mcL (1.6-8.9); Platelet Count 487 K/mcL (140-400); Red Blood Count 4.51 M/mcL (4.19-5.50); Red Cell Distribution Width 13.5 % (11.5-14.5); Segmented Neutrophils % 74.5 %
[2017-08-31] MEDS: *HR* Heparin 5,000 UNIT/ML VIAL SQ SCH ×2 (05:45→19:03)
[2017-08-31 05:53] LABS: Alanine Aminotransferase 70 Units/L (7-52); Albumin/Globulin Ratio 1.1 (1.1-2.2); Alkaline Phosphatase 96 Units/L (34-104); Aspartate Amino Transferase 24 Units/L (13-39); BUN/Creatinine Ratio 41 (6-26); Blood Urea Nitrogen 43 mg/dL (6-20); Calcium 8.5 mg/dL (8.6-10.3); Carbon Dioxide 23 mEq/L (23-29); Chloride 99 mEq/L (98-107); Globulin 2.7 g/dL (2.4-3.5); Glucose 136 mg/dL (70-105); Osmolality,Calculated 285 (280-300); Sodium 131 mEq/L (136-145); Total Protein 5.7 g/dL (6.4-8.9); eGFR For African Americans > 60 (> 60); eGFR For Non-African Americans > 60 (> 60)
[2017-08-31] MEDS: Ondansetron 4 MG/2 ML VIAL IVP PRN (08:53)
[2017-08-31] MEDS ORDERED: 0.9 % Sodium Chloride 500 ML IVC ONE (09:21)
[2017-08-31] MEDS ORDERED: *HR* OxyCODONE Immed Rel 5 MG TABLET PO PRN (16:02)
--- NOTE | 2017-08-31 16:11 | General Surgery Progress Note ---
Date of Encounter: 08/31/17 Time of Encounter: 14:55 Subjective Patient reports: feels better Narrative: General Surgery - POD #7; s/p percutaneous drain placement yesterday The patient states he is feeling better but had a large emesis earlier today. He denies any current nausea. The patient indicates his abdominal pain is resolved Maximum temperature 99.0, pulse 83-100, respiratory rate 14 and 16; blood pressure has been low since initiating lisinopril, currently 88/56 Lungs: Clear, no abdominal pain with deep inspiration Abdomen: Soft nontender with active bowel sounds Oral intake still diminished. Percutaneous drain - 540 mL recorded for 08/30/17; 300 mL so far today Urine output notably diminished overnight but has responded to an IV fluid bolus administered this morning Laboratories: White count has improved slightly to 13.5; neutrophils improved to 10.1% Electrolytes notable for sodium of 131; BUN has risen the 43 with a creatinine increased 1.04 (fluid bolus administered based on these values) Bilirubin 2.0, unchanged; AST is improved is 24, ALT has improved to 70, alkaline phosphatase has normalized, 96. Impression: Postoperative day #7, status post laparoscopy converted open cholecystectomy for acute acalculous cholecystitis Postoperative bile leak - addressed with percutaneous drain placement per [place] [facility] - status appears improved Hypertension likely due to initiation of lisinopril for hypertension that appears to be have been driven by the patient's abdominal pain Plan: Continue to monitor; repeat labs in a.m. Discontinue lisinopril Objective Vital Signs - Last 8 Hours Temp Pulse Resp BP Pulse Ox 08/31/17 15:23 97.6 F 100 14 88/56 93 08/31/17 11:23 98.3 F 87 16 100/60 93 Intake and Output 08/31/17 08/31/17 08/31/17 07:59 15:59 23:59 Intake Total 120 / 120 1290 / 1290 Output Total 400 / 400 250 / 250 Balance -280 / -280 1040 / 1040 Intake: IV Fluids 1000 / 1000 D5% And 0.45% Nacl 1000 Ml Bag 1000 / 1000 1,000 ML @ 75 mls/hr IVC . [id number] [facility] Rx#:[id number] Oral 120 / 120 290 / 290 Output: Urine 250 / 250 100 / 100 Wound Drainage 150 / 150 150 / 150 Right Abdomen 150 / 150 Right Lower Abdomen 0 / 0 150 / 150 Other: # Voids 0 - Labs 08/31/17 04:56 08/31/17 04:56 Diabetes panel 08/31/17 Range/Units 04:56 Sodium 131 L (136-145) mEq/L Potassium 4.0 (3.5-5.1) mEq/L Chloride 99 (98-107) mEq/L Carbon Dioxide 23 (23-29) mEq/L BUN 43 H (6-20) mg/dL Creatinine 1.04 (0.70-1.30) mg/dL Glucose 136 H (70-105) mg/dL Calcium 8.5 L (8.6-10.3) mg/dL AST 24 (13-39) Units/L ALT 70 H (7-52) Units/L Alkaline Phosphatase 96 (34-104) Units/L Albumin 3.0 L (3.5-5.7) g/dL Calcium panel 08/31/17 Range/Units 04:56 Calcium 8.5 L (8.6-10.3) mg/dL Albumin 3.0 L (3.5-5.7) g/dL Pituitary panel 08/31/17 Range/Units 04:56 Sodium 131 L (136-145) mEq/L Potassium 4.0 (3.5-5.1) mEq/L Chloride 99 (98-107) mEq/L Carbon Dioxide 23 (23-29) mEq/L BUN 43 H (6-20) mg/dL Creatinine 1.04 (0.70-1.30) mg/dL Glucose 136 H (70-105) mg/dL Calcium 8.5 L (8.6-10.3) mg/dL Adrenal panel 08/31/17 Range/Units 04:56 Sodium 131 L (136-145) mEq/L Potassium 4.0 (3.5-5.1) mEq/L Chloride 99 (98-107) mEq/L Carbon Dioxide 23 (23-29) mEq/L BUN 43 H (6-20) mg/dL Creatinine 1.04 (0.70-1.30) mg/dL Glucose 136 H (70-105) mg/dL Calcium 8.5 L (8.6-10.3) mg/dL Total Bilirubin 2.0 H (0.3-1.0) mg/dL AST 24 (13-39) Units/L ALT 70 H (7-52) Units/L Alkaline Phosphatase 96 (34-104) Units/L Albumin 3.0 L (3.5-5.7) g/dL - VTE Documentation of Mechanical Device: Intermittent pneumatic compression device Consult Discharge Plan - Plan Referrals: Trang Siegel MD [Family Provider] -
[2017-09-01] MEDS: D5% in 0.45% NACL 1,000 ML IVC SCH ×2 (01:43→16:36)
[2017-09-01] MEDS: *HR* Heparin 5,000 UNIT/ML VIAL SQ SCH ×2 (05:37→16:49)
[2017-09-01 06:01] LABS: Basophils % 0.3 %; Eosinophils # 0.8 K/mcL (0.0-0.6); Eosinophils % 6.7 %; Hematocrit 38.1 % (37.5-50.1); Hemoglobin 12.5 g/dL (12.9-16.9); Immature Granulocytes % 1.1 % (0-4); Lymphocytes # 1.6 K/mcL (0.6-4.6); Lymphocytes % 14.4 %; Mean Corpuscular HGB Conc 32.8 g/dL (31.6-35.5); Mean Corpuscular Hemoglobin 29.6 pg (28.0-33.3); Mean Corpuscular Volume 90.3 fL (83.0-100.0); Mean Platelet Volume 9.5 fL (9.4-12.4); Monocytes # 1.2 K/mcL (0.0-1.3); Monocytes % 10.6 %; Neutrophils # 7.6 K/mcL (1.6-8.9); Platelet Count 494 K/mcL (140-400); Red Blood Count 4.22 M/mcL (4.19-5.50); Red Cell Distribution Width 13.3 % (11.5-14.5); Segmented Neutrophils % 66.9 %
[2017-09-01 06:12] LABS: Alanine Aminotransferase 56 Units/L (7-52); Albumin 2.7 g/dL (3.5-5.7); Alkaline Phosphatase 94 Units/L (34-104); Aspartate Amino Transferase 19 Units/L (13-39); BUN/Creatinine Ratio 49 (6-26); Bilirubin,Direct 0.7 mg/dL (0.0-0.2); Bilirubin,Indirect 0.6 mg/dL (0.0-1.2); Bilirubin,Total 1.3 mg/dL (0.3-1.0); Blood Urea Nitrogen 48 mg/dL (6-20); Calcium 8.2 mg/dL (8.6-10.3); Carbon Dioxide 23 mEq/L (23-29); Chloride 100 mEq/L (98-107); Globulin 2.8 g/dL (2.4-3.5); Glucose 118 mg/dL (70-105); Magnesium 2.2 mg/dL (1.6-2.6); Osmolality,Calculated 282 (280-300); Phosphorous 3.5 mg/dL (2.7-4.5); Potassium 3.6 mEq/L (3.5-5.1); Sodium 129 mEq/L (136-145); Total Protein 5.5 g/dL (6.4-8.9); eGFR For African Americans > 60 (> 60); eGFR For Non-African Americans > 60 (> 60)
--- NOTE | 2017-09-01 12:44 | General Surgery Progress Note ---
Date of Encounter: 09/01/17 Time of Encounter: 12:37 Subjective Patient reports: feels better Narrative: General Surgery - POD # 8 Patient feeling better; no recurrent nausea or vomiting the last 24 hours. Appetite and oral intake also improved Afebrile, heart rate 80-86, respirations 14-15, blood pressure has improved to 116/71 with discontinuation of lisinopril Lungs: Clear Abdomen: Soft; incisions clean and dry JOSSELYN- removed Percutaneously placed Drain per IR - "pigtail" - 355 mL for calendar day (previously 540 mL) and currently 200 mL for this day Laboratories: Leukocytosis of 11.3 (previously 13.5); hemoglobin 12.5 with hematocrit 38.1. Differential notable for resolution of the neutrophilia from 10.1% to 7.6 Sodium is decreased to 129 but without sequela; potassium 3.6, BUN has increased to 48, creatinine 0.98, eGFR >60 Bilirubin has decreased to 1.3, AST is is normal, ALT has improved to 56, alkaline phosphatase normal. Impression: Postoperative day 8, status post laparoscopy converted to open cholecystectomy for acute acalculous cholecystitis Postoperative bile leak, controlled and appears to be diminishing Hypotension improved with discontinuation of lisinopril GI symptoms resolve, appetite and oral intake improved Plan: Continue to monitor; recheck sodium If suspicion for continued bile leak - may require repeat HB scan. If persistent bile leak documented, consult gastroenterology for ERCP & biliary stent placement Objective Vital Signs - Last 8 Hours Temp Pulse Resp BP Pulse Ox 09/01/17 11:10 98.2 F 86 14 108/70 94 09/01/17 10:29 97.4 F L 80 15 116/71 97 09/01/17 06:38 97.5 F L 80 15 101/61 97 Intake and Output 08/31/17 09/01/17 09/01/17 23:59 07:59 15:59 Intake Total 0 / 0 1000 / 1000 0 / 0 Output Total 205 / 205 200 / 200 400 / 400 Balance -205 / -205 800 / 800 -400 / -400 Intake: IV Fluids 1000 / 1000 D5% And 0.45% Nacl 1000 Ml Bag 1000 / 1000 1,000 ML @ 75 mls/hr IVC . [id number] [facility] Rx#:[id number] Oral 0 / 0 0 / 0 0 / 0 Output: Urine 150 / 150 200 / 200 200 / 200 Wound Drainage 55 / 55 200 / 200 Right Abdomen 5 / 5 Right Lower Abdomen 50 / 50 200 / 200 Other: Meal Refused Stool Size Moderate Stool Consistency liquid Stool Color Brown # Bowel Movements 1 Weight 112.4 kg Patient Weight 09/01/17 23:59 Weight 112.4 kg - Labs 09/01/17 05:19 09/01/17 05:19 Diabetes panel 09/01/17 Range/Units 05:19 Sodium 129 L (136-145) mEq/L Potassium 3.6 (3.5-5.1) mEq/L Chloride 100 (98-107) mEq/L Carbon Dioxide 23 (23-29) mEq/L BUN 48 H (6-20) mg/dL Creatinine 0.98 (0.70-1.30) mg/dL Glucose 118 H (70-105) mg/dL Calcium 8.2 L (8.6-10.3) mg/dL AST 19 (13-39) Units/L ALT 56 H (7-52) Units/L Alkaline Phosphatase 94 (34-104) Units/L Albumin 2.7 L (3.5-5.7) g/dL Calcium panel 09/01/17 Range/Units 05:19 Calcium 8.2 L (8.6-10.3) mg/dL Phosphorus 3.5 (2.7-4.5) mg/dL Albumin 2.7 L (3.5-5.7) g/dL Pituitary panel 09/01/17 Range/Units 05:19 Sodium 129 L (136-145) mEq/L Potassium 3.6 (3.5-5.1) mEq/L Chloride 100 (98-107) mEq/L Carbon Dioxide 23 (23-29) mEq/L BUN 48 H (6-20) mg/dL Creatinine 0.98 (0.70-1.30) mg/dL Glucose 118 H (70-105) mg/dL Calcium 8.2 L (8.6-10.3) mg/dL Adrenal panel 09/01/17 Range/Units 05:19 Sodium 129 L (136-145) mEq/L Potassium 3.6 (3.5-5.1) mEq/L Chloride 100 (98-107) mEq/L Carbon Dioxide 23 (23-29) mEq/L BUN 48 H (6-20) mg/dL Creatinine 0.98 (0.70-1.30) mg/dL Glucose 118 H (70-105) mg/dL Calcium 8.2 L (8.6-10.3) mg/dL Total Bilirubin 1.3 H (0.3-1.0) mg/dL AST 19 (13-39) Units/L ALT 56 H (7-52) Units/L Alkaline Phosphatase 94 (34-104) Units/L Albumin 2.7 L (3.5-5.7) g/dL - VTE Documentation of Mechanical Device: Intermittent pneumatic compression device Consult Discharge Plan - Plan Referrals: Trang Siegel MD [Family Provider] -
[2017-09-02 05:22] LABS: Basophils % 0.3 %; Eosinophils # 0.8 K/mcL (0.0-0.6); Eosinophils % 7.4 %; Hematocrit 36.2 % (37.5-50.1); Hemoglobin 12.1 g/dL (12.9-16.9); Immature Granulocytes % 0.9 % (0-4); Lymphocytes % 19.4 %; Mean Corpuscular HGB Conc 33.4 g/dL (31.6-35.5); Mean Corpuscular Hemoglobin 29.8 pg (28.0-33.3); Mean Corpuscular Volume 89.2 fL (83.0-100.0); Mean Platelet Volume 9.3 fL (9.4-12.4); Monocytes # 1.1 K/mcL (0.0-1.3); Monocytes % 10.8 %; Neutrophils # 6.2 K/mcL (1.6-8.9); Platelet Count 496 K/mcL (140-400); Red Blood Count 4.06 M/mcL (4.19-5.50); Red Cell Distribution Width 13.2 % (11.5-14.5); Segmented Neutrophils % 61.2 %
[2017-09-02] MEDS: Ondansetron 4 MG/2 ML VIAL IVP PRN (05:31)
[2017-09-02] MEDS: D5% in 0.45% NACL 1,000 ML IVC SCH (05:38)
[2017-09-02] MEDS: *HR* Heparin 5,000 UNIT/ML VIAL SQ SCH ×2 (05:39→19:12)
[2017-09-02 05:41] LABS: Alanine Aminotransferase 66 Units/L (7-52); Albumin 2.9 g/dL (3.5-5.7); Alkaline Phosphatase 109 Units/L (34-104); Aspartate Amino Transferase 35 Units/L (13-39); BUN/Creatinine Ratio 33 (6-26); Bilirubin,Direct 0.6 mg/dL (0.0-0.2); Bilirubin,Indirect 0.6 mg/dL (0.0-1.2); Bilirubin,Total 1.2 mg/dL (0.3-1.0); Blood Urea Nitrogen 22 mg/dL (6-20); Calcium 8.2 mg/dL (8.6-10.3); Carbon Dioxide 23 mEq/L (23-29); Chloride 103 mEq/L (98-107); Glucose 108 mg/dL (70-105); Osmolality,Calculated 280 (280-300); Potassium 3.7 mEq/L (3.5-5.1); Sodium 133 mEq/L (136-145); Total Protein 5.9 g/dL (6.4-8.9); eGFR For African Americans > 60 (> 60); eGFR For Non-African Americans > 60 (> 60)
--- NOTE | 2017-09-02 12:37 | General Surgery Progress Note ---
Date of Encounter: 09/02/17 Time of Encounter: 12:15 Subjective Patient reports: no new complaints, feels better Narrative: General Surgery - POD #9 Patient indicating that he continues to feel better every day; appetite improving with increased oral intake. The patient denies any abdominal pain The patient remains afebrile most recently 97.9; pulse 7880; respiratory rate 15; blood pressure 118/72. Lungs: Clear to auscultation; no abdominal pain and deep inspiration Abdomen: Soft, nontender. Subcostal incision clean and dry as is the infraumbilical incision Peritoneal drain: 200 mL for calendar day 09/01/17; 50 mL so far today. Steady decrease with each passing day Urine output: 500-600 mL daily Laboratories: Leukocytosis resolved, 10.2; hemoglobin 12.1, hematocrit 36.2 - mild anemia likely due to IV fluids/dilution Hyponatremia improved 133; BUN has improved to 22, creatinine 0.67 Total bilirubin 1.2 (previously 1.3); AST 35, ALT 66, alkaline phosphatase 109; plan: Continue to monitor LFTs Plan: continue to monitor LFTs P-leeanne IV Objective Vital Signs - Last 8 Hours Temp Pulse Resp BP Pulse Ox 09/02/17 10:25 97.9 F 80 15 118/72 99 09/02/17 06:53 97.6 F 78 15 124/78 98 Intake and Output 09/01/17 09/02/17 09/02/17 23:59 07:59 15:59 Intake Total 1000 / 1000 1050 / 1050 240 / 240 Output Total 625 / 625 300 / 300 Balance 1000 / 1000 425 / 425 -60 / -60 Intake: IV Fluids 1000 / 1000 1000 / 1000 D5% And 0.45% Nacl 1000 Ml Bag 1000 / 1000 1000 / 1000 1,000 ML @ 75 mls/hr IVC . [id number] [facility] Rx#:[id number] Oral 0 / 0 50 / 50 240 / 240 Output: Urine 575 / 575 300 / 300 Wound Drainage 50 / 50 Right Lower Abdomen 50 / 50 Other: Meal Dinner Percent of Meal Consumed 0% Weight 111.13 kg Patient Weight 09/02/17 23:59 Weight 111.13 kg - Labs 09/02/17 04:35 09/02/17 04:35 Diabetes panel 09/02/17 Range/Units 04:35 Sodium 133 L (136-145) mEq/L Potassium 3.7 (3.5-5.1) mEq/L Chloride 103 (98-107) mEq/L Carbon Dioxide 23 (23-29) mEq/L BUN 22 H (6-20) mg/dL Creatinine 0.67 L (0.70-1.30) mg/dL Glucose 108 H (70-105) mg/dL Calcium 8.2 L (8.6-10.3) mg/dL AST 35 (13-39) Units/L ALT 66 H (7-52) Units/L Alkaline Phosphatase 109 H (34-104) Units/L Albumin 2.9 L (3.5-5.7) g/dL Calcium panel 09/02/17 Range/Units 04:35 Calcium 8.2 L (8.6-10.3) mg/dL Albumin 2.9 L (3.5-5.7) g/dL Pituitary panel 09/02/17 Range/Units 04:35 Sodium 133 L (136-145) mEq/L Potassium 3.7 (3.5-5.1) mEq/L Chloride 103 (98-107) mEq/L Carbon Dioxide 23 (23-29) mEq/L BUN 22 H (6-20) mg/dL Creatinine 0.67 L (0.70-1.30) mg/dL Glucose 108 H (70-105) mg/dL Calcium 8.2 L (8.6-10.3) mg/dL Adrenal panel 09/02/17 Range/Units 04:35 Sodium 133 L (136-145) mEq/L Potassium 3.7 (3.5-5.1) mEq/L Chloride 103 (98-107) mEq/L Carbon Dioxide 23 (23-29) mEq/L BUN 22 H (6-20) mg/dL Creatinine 0.67 L (0.70-1.30) mg/dL Glucose 108 H (70-105) mg/dL Calcium 8.2 L (8.6-10.3) mg/dL Total Bilirubin 1.2 H (0.3-1.0) mg/dL AST 35 (13-39) Units/L ALT 66 H (7-52) Units/L Alkaline Phosphatase 109 H (34-104) Units/L Albumin 2.9 L (3.5-5.7) g/dL - VTE Documentation of Mechanical Device: Intermittent pneumatic compression device Consult Discharge Plan - Plan Referrals: Trang Siegel MD [Family Provider] -
[2017-09-02] MEDS: Acetaminophen 325 MG TABLET PO PRN (22:38)
[2017-09-02] MEDS: *HR* OxyCODONE Immed Rel 5 MG TABLET PO PRN (23:54)
[2017-09-03] MEDS: Acetaminophen 325 MG TABLET PO PRN (05:20)
[2017-09-03] MEDS: *HR* Heparin 5,000 UNIT/ML VIAL SQ SCH ×2 (05:20→17:20)
[2017-09-03] MEDS: *HR* OxyCODONE Immed Rel 5 MG TABLET PO PRN ×2 (07:55→17:20)
[2017-09-03] MEDS: Ondansetron 4 MG/2 ML VIAL IVP PRN ×2 (08:32→12:25)
--- NOTE | 2017-09-03 11:13 | General Surgery Progress Note ---
Date of Encounter: 09/03/17 Time of Encounter: 11:08 Subjective Patient reports: other (abdominal pain) Narrative: General Surgery POD # 10 Patient complaining of new onset abdominal pain; but remains afebrile, currently 97.9, pulse 75, respirations 18, blood pressure 140/87. Lungs: Clear, no abdominal pain with deep inspiration Cardiac: Regular rate, no appreciable murmurs Abdomen: Soft, tender bilateral upper quadrants and epigastrium but no discernible masses. No rebound. Active bowel sounds; patient indicates he is still passing flatus and continues to move his bowels Urine output 1225 mL count of ; 350 mL so far today Percutaneous drainage - 50 mL in the last 24 hours - fluid remains bile- stained but otherwise clear Labs: No labs obtained this morning, CBC and hepatic panel are pending Impression: Postoperative day 10: Status post laparoscopy converted to open cholecystectomy for acute and chronic cholecystitis Postoperative bile leak which appears to be controlled via percutaneous drain New onset abdominal pain of undetermined etiology. Plan: CBC, hepatic panel stat CT abdomen and pelvis with oral and IV contrast. Objective Vital Signs - Last 8 Hours Temp Pulse Resp BP Pulse Ox 09/03/17 06:58 97.9 F 75 18 147/84 97 09/03/17 04:50 97.5 F L 78 16 156/80 96 Intake and Output 09/02/17 09/03/17 09/03/17 23:59 07:59 15:59 Intake Total 50 / 50 474 / 474 0 / 0 Output Total 350 / 350 Balance 50 / 50 124 / 124 0 / 0 Intake: Oral 50 / 50 474 / 474 0 / 0 Output: Urine 350 / 350 Other: Meal Dinner Breakfast Percent of Meal Consumed 50% 0% Weight 111.13 kg Patient Weight 09/03/17 23:59 Weight 111.13 kg - Labs 09/02/17 04:35 09/02/17 04:35 - VTE Documentation of Mechanical Device: Intermittent pneumatic compression device Consult Discharge Plan - Plan Referrals: Trang Siegel MD [Family Provider] -
[2017-09-03 12:17] LABS: Basophils % 0.3 %; Eosinophils # 0.7 K/mcL (0.0-0.6); Eosinophils % 4.9 %; Hematocrit 38.2 % (37.5-50.1); Hemoglobin 12.4 g/dL (12.9-16.9); Immature Granulocytes % 0.8 % (0-4); Lymphocytes % 14.4 %; Mean Corpuscular HGB Conc 32.5 g/dL (31.6-35.5); Mean Corpuscular Hemoglobin 29.9 pg (28.0-33.3); Mean Platelet Volume 9.3 fL (9.4-12.4); Monocytes # 1.2 K/mcL (0.0-1.3); Monocytes % 8.2 %; Platelet Count 554 K/mcL (140-400); Red Blood Count 4.15 M/mcL (4.19-5.50); Red Cell Distribution Width 13.2 % (11.5-14.5); Segmented Neutrophils % 71.4 %
[2017-09-03 12:36] LABS: Albumin 3.3 g/dL (3.5-5.7); Albumin/Globulin Ratio 1.1 (1.1-2.2); Bilirubin,Direct 0.5 mg/dL (0.0-0.2); Bilirubin,Indirect 0.6 mg/dL (0.0-1.2); Bilirubin,Total 1.1 mg/dL (0.3-1.0); Globulin 2.9 g/dL (2.4-3.5); Total Protein 6.2 g/dL (6.4-8.9)
[2017-09-03] MEDS ORDERED: cefTRIAXone 2,000 MG in Water for inj. (sterile) 20 ML IVP SCH (16:00)
[2017-09-03] MEDS: cefTRIAXone 2,000 MG in Water for inj. (sterile) 20 ML 20 ML IVP SCH (17:19)
[2017-09-03] MEDS: D5% in 0.45% NACL 1,000 ML IVC SCH (21:44)
[2017-09-04] MEDS: *HR* OxyCODONE Immed Rel 5 MG TABLET PO PRN ×2 (00:23→08:59)
[2017-09-04 04:30] LABS: Basophils % 0.2 %; Eosinophils # 0.7 K/mcL (0.0-0.6); Eosinophils % 5.6 %; Hematocrit 36.4 % (37.5-50.1); Immature Granulocytes % 0.7 % (0-4); Lymphocytes # 1.9 K/mcL (0.6-4.6); Lymphocytes % 15.5 %; Mean Corpuscular Hemoglobin 30.2 pg (28.0-33.3); Mean Corpuscular Volume 91.7 fL (83.0-100.0); Mean Platelet Volume 9.6 fL (9.4-12.4); Monocytes # 1.1 K/mcL (0.0-1.3); Monocytes % 9.3 %; Neutrophils # 8.3 K/mcL (1.6-8.9); Platelet Count 526 K/mcL (140-400); Red Blood Count 3.97 M/mcL (4.19-5.50); Red Cell Distribution Width 13.2 % (11.5-14.5); Segmented Neutrophils % 68.7 %
[2017-09-04] MEDS: *HR* Heparin 5,000 UNIT/ML VIAL SQ SCH ×2 (05:19→16:36)
--- NOTE | 2017-09-04 12:09 | General Surgery Progress Note ---
Date of Encounter: 09/04/17 Time of Encounter: 12:05 Subjective Patient reports: feels better, pain is less Narrative: General Surgery - POD #11 Patient feeling better; patient remains afebrile, currently 98.7; pulse 91, respiratory rate 18, but pressure 127/78. When patient was in greater pain, BP was elevated. Lungs: Clear; no abdominal pain to deep inspiration abdomen: Soft, nontender Percutaneously placed drain - output for 09/02/17 was 50 mL; output so far today 150 ML. Labs: Leukocytosis diminished, 12.1; hemoglobin 12.0, hematocrit 36.4. Neutrophilia resolved. Impression: Postoperative day #11; status post laparoscopy converted to open cholecystectomy for acute acalculous cholecystitis Post op bile leak - controlled and appears to be diminishing Abdominal pain and hypertension - resolved. Patient appears back to baseline Plan; Continue to monitor check labs in AM possible Hb scan if continued bile leak suspected Objective Vital Signs - Last 8 Hours Temp Pulse Resp BP Pulse Ox 09/04/17 10:36 98.7 F 91 18 127/78 97 09/04/17 04:26 98.0 F 85 16 131/73 94 Intake and Output 09/03/17 09/04/17 09/04/17 23:59 07:59 15:59 Intake Total 1000 / 1000 0 / 0 Output Total 225 / 225 250 / 250 Balance 775 / 775 -250 / -250 0 / 0 Intake: IV Fluids 1000 / 1000 D5% And 0.45% Nacl 1000 Ml Bag 1000 / 1000 1,000 ML @ 75 mls/hr IVC . [id number] [facility] Rx#:[id number] Oral 0 / 0 0 / 0 Output: Urine 225 / 225 100 / 100 Wound Drainage 150 / 150 Right Lower Abdomen 150 / 150 Other: Meal Dinner REFUSED BREAKFAST Percent of Meal Consumed 0% Weight 111.13 kg Patient Weight 09/04/17 23:59 Weight 111.13 kg - Labs 09/04/17 03:28 09/02/17 04:35 Diabetes panel 09/03/17 Range/Units 11:45 AST 30 (13-39) Units/L ALT 70 H (7-52) Units/L Alkaline Phosphatase 113 H (34-104) Units/L Albumin 3.3 L (3.5-5.7) g/dL Calcium panel 03/24/18 Range/Units 11:45 Albumin 3.3 L (3.5-5.7) g/dL Adrenal panel 09/03/17 Range/Units 11:45 Total Bilirubin 1.1 H (0.3-1.0) mg/dL AST 30 (13-39) Units/L ALT 70 H (7-52) Units/L Alkaline Phosphatase 113 H (34-104) Units/L Albumin 3.3 L (3.5-5.7) g/dL - VTE Documentation of Mechanical Device: Intermittent pneumatic compression device Consult Discharge Plan - Plan Referrals: Trang Siegel MD [Family Provider] -
[2017-09-04] MEDS: D5% in 0.45% NACL 1,000 ML IVC SCH ×2 (12:27→19:26)
[2017-09-04] MEDS: cefTRIAXone 2,000 MG in Water for inj. (sterile) 20 ML 20 ML IVP SCH (15:47)
[2017-09-05] MEDS: *HR* Heparin 5,000 UNIT/ML VIAL SQ SCH ×2 (05:12→21:10)
[2017-09-05 05:17] LABS: Basophils # 0.1 K/mcL (0.0-0.2); Basophils % 0.4 %; Eosinophils # 0.7 K/mcL (0.0-0.6); Eosinophils % 6.2 %; Hematocrit 34.2 % (37.5-50.1); Hemoglobin 11.5 g/dL (12.9-16.9); Immature Granulocytes % 0.7 % (0-4); Lymphocytes # 2.1 K/mcL (0.6-4.6); Lymphocytes % 18.1 %; Mean Corpuscular HGB Conc 33.6 g/dL (31.6-35.5); Mean Corpuscular Hemoglobin 30.6 pg (28.0-33.3); Mean Platelet Volume 9.3 fL (9.4-12.4); Monocytes # 1.3 K/mcL (0.0-1.3); Monocytes % 11.2 %; Neutrophils # 7.4 K/mcL (1.6-8.9); Platelet Count 506 K/mcL (140-400); Red Blood Count 3.76 M/mcL (4.19-5.50); Red Cell Distribution Width 13.1 % (11.5-14.5); Segmented Neutrophils % 63.4 %
[2017-09-05 05:27] LABS: Alanine Aminotransferase 45 Units/L (7-52); Albumin 2.8 g/dL (3.5-5.7); Alkaline Phosphatase 112 Units/L (34-104); Aspartate Amino Transferase 18 Units/L (13-39); BUN/Creatinine Ratio 13 (6-26); Bilirubin,Direct 0.5 mg/dL (0.0-0.2); Bilirubin,Indirect 0.4 mg/dL (0.0-1.2); Bilirubin,Total 0.9 mg/dL (0.3-1.0); Blood Urea Nitrogen 9 mg/dL (6-20); Calcium 8.2 mg/dL (8.6-10.3); Carbon Dioxide 26 mEq/L (23-29); Chloride 102 mEq/L (98-107); Globulin 2.9 g/dL (2.4-3.5); Glucose 107 mg/dL (70-105); Osmolality,Calculated 277 (280-300); Sodium 134 mEq/L (136-145); Total Protein 5.7 g/dL (6.4-8.9); eGFR For African Americans > 60 (> 60); eGFR For Non-African Americans > 60 (> 60)
--- NOTE | 2017-09-05 12:41 | General Surgery Progress Note ---
Date of Encounter: 09/05/17 Time of Encounter: 12:30 Subjective Patient reports: no new complaints, feels better Narrative: General Surgery - POD #12 Patient feeling well; voicing no complaints. No recurrent abdominal pain. The patient remains afebrile, hemodynamically stable. 98.2, pulse 80, respirations 15, blood pressure 119/69. Lungs: Clear Abdomen: Soft nontender; subcostal incision continues to heal well. Active bowel sounds. Percutaneously placed drain -output today markedly diminished - 260 mL for calendar day 09/04/17; 30 mL so far today Labs: White count has improved to 11.7, hemoglobin 11.5, hematocrit 34.2. Differential remains within normal limits Sodium 134, the remainder of the electrolytes within normal limits, BUN 9, creatinine 0.67 Bilirubin 0.9, AST 18, ALT 45, alkaline phosphatase 112 Impression - POD #12 - Status post laparoscopy, open cholecystectomy for acute acalculus cholecystitis Post op bile leak - appears controlled with diminished output Leukocytosis - resolving abnormal LFTs likely due to bile leak - almost normalized mild anemia - stable hyponatremia - stable, no obvious sequelae. Plan: Repeat CBC in a.m. Possible removal of drain in a.m. Objective Vital Signs - Last 8 Hours Temp Pulse Resp BP Pulse Ox 09/05/17 10:46 98.2 F 80 15 119/69 95 09/05/17 06:45 98.9 F 80 17 129/76 94 Intake and Output 09/04/17 09/05/17 09/05/17 23:59 07:59 15:59 Intake Total 480 / 480 240 / 240 0 / 0 Output Total 150 / 150 480 / 480 200 / 200 Balance 330 / 330 -240 / -240 -200 / -200 Intake: Oral 480 / 480 240 / 240 0 / 0 Output: Urine 150 / 150 450 / 450 200 / 200 Wound Drainage 0 / 0 30 / 30 0 / 0 Right Lower Abdomen 0 / 0 30 / 30 0 / 0 Other: Meal Dinner Percent of Meal Consumed 0% # Voids 2 - Labs 09/05/17 04:30 09/05/17 04:30 Diabetes panel 09/05/17 Range/Units 04:30 Sodium 134 L (136-145) mEq/L Potassium 4.0 (3.5-5.1) mEq/L Chloride 102 (98-107) mEq/L Carbon Dioxide 26 (23-29) mEq/L BUN 9 (6-20) mg/dL Creatinine 0.67 L (0.70-1.30) mg/dL Glucose 107 H (70-105) mg/dL Calcium 8.2 L (8.6-10.3) mg/dL AST 18 (13-39) Units/L ALT 45 (7-52) Units/L Alkaline Phosphatase 112 H (34-104) Units/L Albumin 2.8 L (3.5-5.7) g/dL Calcium panel 09/05/17 Range/Units 04:30 Calcium 8.2 L (8.6-10.3) mg/dL Albumin 2.8 L (3.5-5.7) g/dL Pituitary panel 09/05/17 Range/Units 04:30 Sodium 134 L (136-145) mEq/L Potassium 4.0 (3.5-5.1) mEq/L Chloride 102 (98-107) mEq/L Carbon Dioxide 26 (23-29) mEq/L BUN 9 (6-20) mg/dL Creatinine 0.67 L (0.70-1.30) mg/dL Glucose 107 H (70-105) mg/dL Calcium 8.2 L (8.6-10.3) mg/dL Adrenal panel 09/05/17 Range/Units 04:30 Sodium 134 L (136-145) mEq/L Potassium 4.0 (3.5-5.1) mEq/L Chloride 102 (98-107) mEq/L Carbon Dioxide 26 (23-29) mEq/L BUN 9 (6-20) mg/dL Creatinine 0.67 L (0.70-1.30) mg/dL Glucose 107 H (70-105) mg/dL Calcium 8.2 L (8.6-10.3) mg/dL Total Bilirubin 0.9 (0.3-1.0) mg/dL AST 18 (13-39) Units/L ALT 45 (7-52) Units/L Alkaline Phosphatase 112 H (34-104) Units/L Albumin 2.8 L (3.5-5.7) g/dL - VTE Documentation of Mechanical Device: Intermittent pneumatic compression device Consult Discharge Plan - Plan Referrals: Trang Siegel MD [Family Provider] -
[2017-09-05] MEDS: cefTRIAXone 2,000 MG in Water for inj. (sterile) 20 ML 20 ML IVP SCH (20:50)
[2017-09-05] MEDS: D5% in 0.45% NACL 1,000 ML IVC SCH (20:51)
[2017-09-06] MEDS: *HR* Heparin 5,000 UNIT/ML VIAL SQ SCH (06:04)
[2017-09-06 07:29] LABS: Hematocrit 33.8 % (37.5-50.1); Hemoglobin 11.1 g/dL (12.9-16.9); Immature Granulocytes % 4.6 % (0-4); Lymphocytes % 17.1 %; Mean Corpuscular HGB Conc 32.8 g/dL (31.6-35.5); Mean Corpuscular Hemoglobin 30.6 pg (28.0-33.3); Mean Corpuscular Volume 93.1 fL (83.0-100.0); Mean Platelet Volume 10.4 fL (9.4-12.4); Monocytes % 9.9 %; Platelet Count 548 K/mcL (140-400); Red Blood Count 3.63 M/mcL (4.19-5.50); Red Cell Distribution Width 12.9 % (11.5-14.5); Segmented Neutrophils % 61.6 %
[2017-09-06 07:30] LABS: Basophils # 0.1 K/mcL (0.0-0.2); Basophils % 0.5 %; Eosinophils # 0.7 K/mcL (0.0-0.6); Eosinophils % 6.3 %; Monocytes # 1.1 K/mcL (0.0-1.3); Nucleated Red Blood Cells 0.7 /100 WBC (0)
[2017-09-06 07:45] LABS: Lymphocytes # 1.9 K/mcL (0.6-4.6); Neutrophils # 6.7 K/mcL (1.6-8.9)
[2017-09-06 10:54] VITALS: BP 110/69
--- NOTE | 2017-09-06 15:36 | General Surgery Progress Note ---
Date of Encounter: 09/06/17 Time of Encounter: 15:30 Subjective Patient reports: no new complaints Narrative: General Surgery - POD #13 Progress Note / Discharge Summary Patient feeling well; denies abdominal pain or other complaints. Tolerating diet ; no nausea or vomiting. Patient is anxious to go home. Patient is afebrile, currently 97.8, pulse 79, respirations 16, blood pressure 110/69. SPO2 on room air 98% Lungs: Clear Cardiac: Regular rate, no appreciable murmurs Abdomen: Soft, nontender. Subcostal incision clean and dry and healing nicely. Skin edgar removed. Infraumbilical incision - also intact and healing well. Glidden removed Percutaneously placed drain. Output 30 mL in the last 24 hours; no output today. Drain removed Laboratories: Leukocytosis resolved, 10.8; hemoglobin stable at 11.1 and hematocrit 33.8 platelet count 548,000. Impression: Postoperative day 13, status post laparoscopy converted to open cholecystectomy for acute acalculous cholecystitis. Postoperative bile leak, resolved; drain removed Mild anemia - likely due to acute operative blood losses as well as acute and chronic disease. Expected to resolve patient continues to recover Postoperative status stable - sufficient for discharge home. Plan: Discharge home Follow up in the office as outpatient, 09/12/17. Status on discharge: Good Brief history: 61-year-old male transferred from [facility] after presenting there with a three-day history of progressive right upper quadrant abdominal pain and nausea. Evaluation included laboratories and CT. Laboratories were notable for a leukocytosis of 14.2 with 11.1% neutrophils. Hemoglobin was 16.3 (hemoconcentrated) electrolytes, BUN, creatinine were within normal limits as were LFTs. CT abdomen and pelvis was notable for a distended, thick-walled gallbladder with pericholecystic fluid and inflammatory changes. The clinical findings were consistent with acute cholecystitis for which the patient was transferred to [facility] for further care and management. A dictated H&P is available for inspection pertaining to that transfer to [facility]. The patient was evaluated with arrangements made to address the patient's acute findings operatively. The patient was taken to surgery. A laparoscopic approach was initiated but the acute inflammatory changes were too great to complete the surgery laparoscopically. He was converted to open cholecystectomy via a right subcostal incision. The patient tolerated the procedure well and initially appeared to be recovering appropriately but began to complain of progressive abdominal pain and increasing nausea but no emesis. A CT of the abdomen was repeated showing minor bilateral pleural effusions, persistent peritoneal air consistent with the recent celiotomy and thickening of the upper right rectus abdominis consistent with a subcostal incision. No abscess, hematoma or biloma was described. The patient continued to complain of worsening abdominal pain, nausea and anorexia. An Hb scan was completed on the fifth postoperative day confirming presence of a postoperative bile leak. The following day a image guided percutaneous drain placement was accomplished by Interventional Radiology. The patient felt significantly improved with removal of the intraperitoneal bile, the abdominal pain, nausea and anorexia slowly resolved. Over the next several days the patient demonstrated a leukocytosis that resolved. Abnormal LFTs related to the bile leak also returned to normal. The patient continued to improve until his discharge on postoperative day 13, 09/06/17. Discharge instructions: Regular diet Patient may be as active as tolerated; lifting limited less than 20 pounds Patient may shower, wash incisions with soap and water Tylenol, ibuprofen, Motrin, etc. as needed for pain Follow-up in the office, 09/12/17. Patient has been instructed to call the office on 09/08/17 to make this appointment. Should any problems arise such as increasing abdominal pain, nausea, vomiting , or fevers - the patient should contact my office JOHN. Discharge diagnoses Acute acalculous cholecystitis Postoperative bile leak Anemia related to acute operative blood losses as well as prolonged perioperative illness which has now resolved. The anemia is expected to resolve as the patient continues to recover and consume regular diet and resume his normal activities Mild hyponatremia without sequela Transient postoperative leukocytosis - resolved Transient postoperative elevated LFTs - resolved with drainage of intraperitoneal bile Transient postoperative hypertension due to abdominal pain - currently resolved Bilateral minimal bilateral pleural effusions Objective Vital Signs - Last 8 Hours Temp Pulse Resp BP Pulse Ox 09/06/17 10:53 97.8 F 79 16 110/69 98 Intake and Output 09/05/17 09/06/17 09/06/17 23:59 07:59 15:59 Intake Total 0 / 0 360 / 360 Output Total 0 / 0 300 / 300 Balance 0 / 0 60 / 60 Intake: Oral 0 / 0 360 / 360 Output: Urine 0 / 0 300 / 300 Wound Drainage 0 / 0 0 / 0 Right Lower Abdomen 0 / 0 0 / 0 Other: Weight 111.13 kg Patient Weight 09/06/17 23:59 Weight 111.13 kg - Labs 09/06/17 05:49 09/05/17 04:30 - VTE Documentation of Mechanical Device: Intermittent pneumatic compression device Consult Discharge Plan - Plan Referrals: Trang Siegel MD [Family Provider] -
--- NOTE | 2017-09-06 15:42 | Discharge Summary ---
Outpatient Proc Discharge Plan - Plan Additional Instructions: Regular diet Activity as tolerated; lifting limited less than 20 pounds Patient may shower, wash incisions with soap and water Follow-up in the office, 09/12/17; patient to call office on , 09/08/17, to make this appointment Tylenol, ibuprofen, Motrin, etc. as needed for pain Patient to contact my office JOHN for symptoms such as increased fever, chills, abdominal pain, nausea or vomiting. Home Medications: Acetaminophen [Tylenol] 650 mg PO Q6HR PRN tablet 09/06/17 [Rx]
== END 2017-09-06 16:23 | disposition home or self-care (01) | DRG 263 ==
LOC: 3ANU
PROVIDERS: ADMIT Surgery; ATTEND Surgery
PROC: IRDRAIN (2017-08-30 12:00)